=== PATIENT | female | born 1945 | race Caucasian/White ===

== ENCOUNTER 2019-12-05 09:52 | Inpatient (IN) | payer BC, SELFPAY ==
[~2019-12-05] VITALS: Ht 157.5 cm; Wt 77.1 kg
[2019-12-05] VITALS (7 sets, daily range): BP systolic 104–153
--- NOTE | 2019-12-05 09:52 | NUR ---
Placed in room 7 . Placed on cardiac exercise physiologist, blood pressure machine and pulse oximeter. To gown for exam. Side rails up. Report given to TY Jenkins.
--- NOTE | 2019-12-05 09:55 | NUR ---
Pt walked in to ER from home with c/o SOB. Reports h/o COPD and emphysema, currently on RA sats 93%, no distress noted. V/S stable, pt is afebrile. Currently resting in bed, will continue to monitor.
--- NOTE | 2019-12-05 10:00 | NUR ---
ER Dr. Bender at bedside examining patient.
--- NOTE | 2019-12-05 10:10 | NUR ---
Radiology at bedside for CXR.
--- NOTE | 2019-12-05 10:15 | NUR ---
Respiratory at bedside to draw ABG.
--- NOTE | 2019-12-05 10:40 | NUR ---
# 20 gauge angiocath placed to LAC. Use of asceptic technique. Opsite placed over site. Blood return noted. Blood for lab drawn from site. Flushed with 10 cc of normal saline. No evidence of infiltration noted. Patient tolerated well.
[2019-12-05 10:46] LABS: BASOPHILS % (AUTO) 0.5 % (0.0-2.0); EOSINOPHILS % (AUTO) 0.6 % (0.0-4.0); HEMOGLOBIN 12.7 g/dL (12.0-16.0); LYMPHOCYTES # (AUTO) 1.3 K/uL (1.0-5.5); LYMPHOCYTES % (AUTO) 22.8 % (20.5-51.5); MEAN CORPUSCULAR HEMOGLOBIN 31 pg (27-31); MEAN CORPUSCULAR HGB CONC 34 % (32-36); MEAN CORPUSCULAR VOLUME 93 fL (79.0-98.0); MONOCYTES # (AUTO) 0.6 K/uL (0.0-1.0); MONOCYTES % (AUTO) 9.6 % (1.7-9.3); NEUTROPHILS # (AUTO) 3.9 K/uL (1.8-7.7); NEUTROPHILS % (AUTO) 66.5 % (40.0-70.0); PLATELET COUNT (AUTO) 154 K/uL (130-430); RED BLOOD CELL COUNT(AUTO) 4.08 MIL/uL (4.2-6.2); RED CELL DISTRIBUTION WIDTH 12.9 % (9.0-15.0); WHITE BLOOD COUNT (AUTO) 5.8 K/uL (4.8-10.8)
[2019-12-05 11:03] LABS: ANION GAP 11 (5-15); CALCIUM 8.8 mg/dL (8.4-11.0); CHLORIDE 105 mmol/L (98-107); CREATININE 0.78 mg/dL (0.55-1.30); GLUCOSE 127 mg/dL (70-99); POTASSIUM 3.3 mmol/L (3.5-5.1); SODIUM SERUM 140 mmol/L (136-145); UREA NITROGEN, BLOOD 13 mg/dL (8-21)
[2019-12-05 11:10] LABS: ALANINE AMINOTRANSFERASE 22 U/L (12-78); ALBUMIN 3.7 g/dL (3.4-4.8); ASPARTATE AMINOTRANSFERASE 37 U/L (10-37); TOTAL BILIRUBIN 0.8 mg/dL (0.0-1.0)
[2019-12-05] MEDS ORDERED: ASPIRIN 325 MG TABLET PO ONE (11:30)
[2019-12-05] MEDS ORDERED: NITROGLYCERIN 1 INCH (GM) OINT. TP ONE (11:30)
[2019-12-05] MEDS ORDERED: METO-442 PO (11:36)
[2019-12-05] MEDS ORDERED: ISOS30TA9 PO (11:36)
[2019-12-05] MEDS ORDERED: LEVO25TA2 PO (11:36)
[2019-12-05] MEDS ORDERED: FURO-149 PO (11:36)
[2019-12-05] MEDS ORDERED: NOR10 PO (11:36)
[2019-12-05] MEDS ORDERED: ATOR-1 PO (11:36)
[2019-12-05] MEDS ORDERED: VALS80TA2 PO (11:36)
--- NOTE | 2019-12-05 11:38 | NUR ---
Med rec and belongings list completed.
--- NOTE | 2019-12-05 12:11 | NUR ---
Admit orders received from Dr. Hirsch, Pt will go to 117A.
--- NOTE | 2019-12-05 12:20 | NUR ---
Patient will be admitted to care of Dr. Hirsch. Admitted to tele unit. Will go to room 117A. Belongings list completed. Complete and up to date summary report printed. SBAR report to be given at bedside with opportunity for questions. IV site intact and patent
--- NOTE | 2019-12-05 12:40 | NUR ---
Admission Note Received patient from ER with diagnosis of copd, elevated troponin. Initial Plan of Care discussed-patient verbalized understanding. Family at bedside. Oriented to room, call light, pain management and safety.
--- NOTE | 2019-12-05 12:40 | NUR ---
Patient transferred to unit in stable condition.
--- NOTE | 2019-12-05 12:50 | NUR ---
CONSULTATION PAGED/CALLED Reason for Consultation: [] ELEVATED TROP Person Who was Notified: [] TENNILLE Consulting Physician: [] DR CHANTELLE MIRZA Machine Cleaner Specialty: [] LANDSCAPE ARCHITECT AND PLANNER Ordering Physician: [] DR JACKIE MIRZA
--- NOTE | 2019-12-05 12:52 | NUR ---
CONSULTATION PAGED/CALLED Reason for Consultation: [] COPD Person Who was Notified: [] PAGED DR RAMIREZ BINDING CUTTER SYNTHETIC CLOTH FOR DR WERNER Consulting Physician: [] DR Hans RAMIREZ Map Clerk Specialty: [] PULMO Ordering Physician: [] DR Hans MIRZA
--- NOTE | 2019-12-05 14:30 | NUR ---
Routine Patient stable at this time with Dr. Nicholson at bedside.
--- NOTE | 2019-12-05 16:20 | NUR ---
Routine Patient ambulated to bathroom and back to bed; stable.
[2019-12-05] MEDS ORDERED: HYDROcodone/ACETAMIN 10-325 MG TAB PO PRN (17:30)
[2019-12-05] MEDS ORDERED: ONDANSETRON HCL 4 MG/2 ML VIAL IVP PRN (17:30)
[2019-12-05] MEDS ORDERED: NALOXONE HCL 0.4 MG/ML AMP (NARCAN) IVP PRN ×2 (17:30)
[2019-12-05] MEDS ORDERED: ACETAMINOPHEN 325 MG TABLET PO PRN (17:30)
[2019-12-05] MEDS ORDERED: LORazepam 2 MG/ML VIAL IVP PRN (17:30)
[2019-12-05] MEDS ORDERED: HYDROcodone/ACETAMIN 5-325 MG TAB (NORCO/ VICODIN) PO PRN (17:30)
--- NOTE | 2019-12-05 18:30 | NUR ---
Routine Called [facility] at [phone] to verify medications.
--- NOTE | 2019-12-05 19:30 | NUR ---
CHANGE OF SHIFT; pt. admitted today for chest pain/SOB. ambulated to the restroom. no acute distress. day shift nurse called Dr. Gabino Hirsch for critical result of Troponin. call light within reach.
--- NOTE | 2019-12-05 19:50 | NUR ---
NOTES: Dr. Timothy Hirsch returned the call and informed him about the critical result of Troponin 3.761, pt. also c/o chest discomfort but not chest pain per pt. VS checked, O2 sat 90%, some shortness of breath noted, pl;aced on O2 @ 2 liters per nc and also told MD. continue to monitor. call light at bedside. EKG result read with Timothy Montalvo
[2019-12-05] MEDS: NORMAL SALINE 5 ML DISP.SYRIN IVF SCH (20:32)
[2019-12-05] MEDS: METOPROLOL TARTRATE 50 MG TABLET PO SCH (20:32)
--- NOTE | 2019-12-05 20:35 | NUR ---
NOTES: O2 sat checked 95% on 2 liters/nasal cannula. due medications given and tolerated well. instructed to use call light when help needed and verbalized understanding.
[2019-12-05] MEDS ORDERED: LOSARTAN POTASSIUM 50 MG TABLET (COZAAR) PO SCH (21:00)
[2019-12-05] MEDS ORDERED: VALSARTAN 80 MG TABLET (DIOVAN) PO SCH (21:00)
[2019-12-05] MEDS ORDERED: ATORVASTATIN 20 MG TABLET PO SCH (21:00)
--- NOTE | 2019-12-05 21:30 | NUR ---
NOTES: Dr. Wilhelm here, seen and talked to pt.
[2019-12-05] MEDS ORDERED: NORMAL SALINE 5 ML DISP.SYRIN IVF SCH (22:00)
--- NOTE | 2019-12-05 23:00 | NUR ---
NOTES: another Troponin blood draw done. VS rechecked, feels much better. O2 sat 95% on 2 liters O2 but wants it off for now, reinstructed to have it on if feeling short of breath.
--- NOTE | 2019-12-05 23:34 | NUR ---
NOTES: lab called for critical Troponin result 4.003, will call MD. white sleeping at this time.
--- NOTE | 2019-12-06 00:15 | NUR ---
NOTES: still waiting for Dr. Gabino Hirsch to call back for troponin critical result 4.003, pt. denies any chest pain.
[2019-12-06] MEDS: ENOXAPARIN SODIUM 80 MG/0.8 ML SYRINGE SUBCUT SCH ×2 (01:16→09:30)
--- NOTE | 2019-12-06 01:19 | NUR ---
NOTES: pt. awakened for first dose of Lovenox, informed pt. side effects of medication. noted with dry cough , breathing treatment initiated by RT.
[2019-12-06] MEDS: IPRATROPIUM/ALBUTEROL SULFATE 3 ML AMPUL.NEB (DUONEB) INH PRN ×3 (01:23→14:51)
--- NOTE | 2019-12-06 02:45 | NUR ---
NOTES: pt. checked, call light got disconnected, wants her O2 back. no chest pain. on sinus rhythm with BBB. condition observed.
--- NOTE | 2019-12-06 04:00 | NUR ---
NOTES: condition unchanged. continue to monitor.
--- NOTE | 2019-12-06 06:00 | NUR ---
NOTES; pt. been sleeping. am blood draw. no complaints.
[2019-12-06 06:38] LABS: BASOPHILS % (AUTO) 0.3 % (0.0-2.0); EOSINOPHILS # (AUTO) 0.1 K/uL (0.0-0.4); EOSINOPHILS % (AUTO) 1.4 % (0.0-4.0); HEMATOCRIT 35.8 % (36-48); LYMPHOCYTES # (AUTO) 1.4 K/uL (1.0-5.5); LYMPHOCYTES % (AUTO) 29.4 % (20.5-51.5); MEAN CORPUSCULAR HEMOGLOBIN 31 pg (27-31); MEAN CORPUSCULAR HGB CONC 34 % (32-36); MEAN CORPUSCULAR VOLUME 93 fL (79.0-98.0); MONOCYTES # (AUTO) 0.4 K/uL (0.0-1.0); NEUTROPHILS # (AUTO) 2.9 K/uL (1.8-7.7); NEUTROPHILS % (AUTO) 59.9 % (40.0-70.0); PLATELET COUNT (AUTO) 139 K/uL (130-430); RED BLOOD CELL COUNT(AUTO) 3.86 MIL/uL (4.2-6.2); WHITE BLOOD COUNT (AUTO) 4.9 K/uL (4.8-10.8)
--- NOTE | 2019-12-06 06:39 | NUR ---
CLOSING NOTES; no complaints, uses O@ on an doff, still with occ. bouts of non productive cough. [pending am labs result. no chest pain. for further care and assistance. call light within reach.
[2019-12-06] MEDS: NORMAL SALINE 5 ML DISP.SYRIN IVF SCH ×2 (06:52→14:42)
[2019-12-06] MEDS ORDERED: LEVOTHYROXINE SODIUM 0.025 MG TABLET PO SCH (07:00)
[2019-12-06 07:53] LABS: ANION GAP 7 (5-15); CALCIUM 8.5 mg/dL (8.4-11.0); CHLORIDE 107 mmol/L (98-107); CREATININE 0.65 mg/dL (0.55-1.30); GLUCOSE 118 mg/dL (70-99); PHOSPHORUS 3.5 mg/dL (2.7-4.5); POTASSIUM 3.5 mmol/L (3.5-5.1); SODIUM SERUM 141 mmol/L (136-145); UREA NITROGEN, BLOOD 11 mg/dL (8-21)
[2019-12-06 08:00] VITALS: BP_SYST 136
--- NOTE | 2019-12-06 08:00 | NUR ---
initial notes rec patient awake alert with hob elevated. ivl in place. no sob noted. bed to the lowest position and side rails up and locked. call light within reached and knows when to call for assistance. no sob noted. will continue to monitor patient.
[2019-12-06] MEDS ORDERED: amLODIPine BESYLATE 10 MG TABLET PO SCH (09:00)
[2019-12-06] MEDS ORDERED: FUROSEMIDE 40 MG TABLET PO SCH (09:00)
[2019-12-06] MEDS: METOPROLOL TARTRATE 50 MG TABLET PO SCH (09:24)
--- NOTE | 2019-12-06 09:35 | NUR ---
PAGED DR Hans MIRZA PAGED Hans MIRZA FOR ORDERS SPOKE TO EDEN
[2019-12-06] MEDS ORDERED: guaiFENesin/DEXTROMETHORPHAN 10 ML UDC PO PRN ×2 (09:45→10:30)
[2019-12-06] MEDS ORDERED: BENZONATATE 100 MG CAPSULE (TESSALON) PO ONE (10:30)
[2019-12-06] MEDS ORDERED: BENZOCAINE/MENTHOL 1 EACH LOZENGE MM PRN (10:30)
--- NOTE | 2019-12-06 10:30 | NUR ---
rounds due meds were given and katherine well. denies pain at this time. call light within reached.
[2019-12-06 11:28] VITALS: BP_SYST 140
--- NOTE | 2019-12-06 14:00 | NUR ---
rounds talks with family at intervals over her cellphone. denies pain and side rails up and loced. call light withn reached.
--- NOTE | 2019-12-06 14:26 | NUR ---
SS NOTES/DCP: SMALL ENGINE MECHANIC was referred by CM to see patient for DCP. Demographic information confirmed and updated. SMALL ENGINE MECHANIC met with patient at bedside. Pt is alert, awake and oriented x4. Pt is is calm and cooperative. Pt is a 74 y/o female who came in via ED. Pt states she lives with her Brandon. Pt is independent with all her ADLs and ambulation. Pt does not require any DME, but owns a walker and wheelchair. Pt denies any history of mental health or substance abuse. Pt's only source of income is her [employer]. Patient stated she is "a little upset" because her family is unable to visit her in the hospital, but understands the risks and is grateful that she was able to see family through the window. Pt does not have an advanced directive and is interested in formulating one. SMALL ENGINE MECHANIC provided and educated patient on POLST and Advanced directive. If patient is discharged to SNF/HHS, pt does not have any preference on providers.
[2019-12-06 15:39] VITALS: BP_SYST 135
[2019-12-06] MEDS ORDERED: BENZONATATE 100 MG CAPSULE (TESSALON) PO SCH (16:00)
--- NOTE | 2019-12-06 16:00 | NUR ---
rounds seen by dr alejandra santana and with orders. expalined to patient to wait for the cardio md and stated if cleared by him and will be able to leave tonight.
[2019-12-06 16:33] VITALS: BP_SYST 135
--- NOTE | 2019-12-06 18:15 | NUR ---
closing notes pt was discharged after seen by dr sharon santana. instructed re medication reconciliation. instructed also re follow up with dr alejandra santana but patient stated will go to [facility]. . id band and ivl was removed. was wheeled outside and katherine well. stable and needs attended. 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
--- NOTE | 2019-12-15 12:19 | NUR ---
Discharge Follow-Up Call: PINKED EDGE SEWING MACHINE OPERATOR phoned pt on 12/09, 12/10 and 12/14. PINKED EDGE SEWING MACHINE OPERATOR left reason for call and asked for a call back. No further SS call needed.
== END 2019-12-06 18:00 | disposition home or self-care (01) | DRG 280 ==
LOC: SED 09:52 → STU 12:08
PROVIDERS: ADMIT Preventive Medicine Preventive Medicine/Occupational Environmental Medicine; ATTEND Preventive Medicine Preventive Medicine/Occupational Environmental Medicine
DX: I21.A1 Myocardial infarction type 2 (principal); J96.00 Acute respiratory failure, unspecified whether with hypoxia or hypercapnia; I42.9 Cardiomyopathy, unspecified; E03.9 Hypothyroidism, unspecified; R73.9 Hyperglycemia, unspecified; Z86.73 Personal history of transient ischemic attack (TIA), and cerebral infarction without residual deficits; I11.9 Hypertensive heart disease without heart failure; I25.10 Atherosclerotic heart disease of native coronary artery without angina pectoris; Z86.79 Personal history of other diseases of the circulatory system; E78.5 Hyperlipidemia, unspecified; E66.9 Obesity, unspecified; E87.6 Hypokalemia; Z95.1 Presence of aortocoronary bypass graft; I25.5 Ischemic cardiomyopathy; I71.4 Abdominal aortic aneurysm, without rupture; Z68.35 Body mass index [BMI] 35.0-35.9, adult; Z20.828 Contact with and (suspected) exposure to other viral communicable diseases; J44.9 Chronic obstructive pulmonary disease, unspecified
CPT/HCPCS: 36415; 36600; 71045; 80048; 80053; 82550-TC; 82803-TC; 83735-TC; 83880; 84100-TC; 84484; 85025; 85379; 93005; 93306; 94640; 99285; G0378; J1650